=== PATIENT | male | born 1990 | race Asian ===

== ENCOUNTER 2017-05-07 19:35 | Emergency (ER) | payer SELFPAY ==
[~2017-05-07] VITALS: Ht 170.2 cm; Wt 65.8 kg
[2017-05-07 21:02] VITALS: BP 135/89
== END 2017-05-07 21:02 | disposition home or self-care (01) ==
LOC: ED 19:35
DX: S61.012A Laceration without foreign body of left thumb without damage to nail, initial encounter (principal); W26.0XXA Contact with knife, initial encounter; Y93.89 Activity, other specified; Y92.89 Other specified places as the place of occurrence of the external cause; Y99.8 Other external cause status
CPT/HCPCS: J2001